=== PATIENT | male | born 1995 | race Caucasian/White ===

== ENCOUNTER 2020-11-22 19:08 | Emergency (ER) | payer SELFPAY ==
[~2020-11-22] VITALS: Ht 177.8 cm; Wt 74.8 kg
[2020-11-22] MEDS ORDERED: LAMICTAL100 MG PO (19:20)
[2020-11-22] MEDS ORDERED: CEPHALEXIN500 M1 PO (19:39)
== END 2020-11-22 19:55 | disposition home or self-care (01) ==
LOC: ED 19:08
DX: M95.11 Cauliflower ear, right ear (principal); Z79.899 Other long term (current) drug therapy